=== PATIENT | male | born 1985 | race Caucasian/White ===

== ENCOUNTER 2023-07-28 14:51 | Outpatient (OUT) | payer OTHER, SELFPAY ==
--- NOTE | 2023-07-28 14:54 | US_ITS ---
[address] [address] Patient Name: BRIANNA GROSS MRN: [id number] date: 1985 Sex: M Assigned Patient Location: Current Patient Location: Accession/Order Number: [id number] Exam Date: 07/28/2023 15:00 Report Date: 07/29/2023 09:37 At the request of: SHAIKH DEANDRA Procedure: US scrotum US scrotum, 07/28/2023 3:00 PM EST INDICATION:Inflammatory disorder of the scrotum. COMPARISON: No prior scrotal ultrasound available for comparison at the time of this dictation. GRAYSCALE TECHNIQUE: Multi-planar real-time high-resolution ultrasound of the scrotum was performed. DOPPLER TECHNIQUE: Color and/or power Doppler combined with spectral Doppler analysis to evaluate blood flow to and from the testes was performed. FINDINGS: Right testicle: Normal size and echotexture 4.5 x 2.6 x 3.3 cm. Right epididymis: 0.7 x 0.4 x 0.5 cm simple cyst head of the epididymis. Vascularity is within normal limits. Right varicocele 2.5-3.1 mm in diameter. No subjectively significant increase in size with Valsalva technique. Left testicle: Normal size and echotexture 4.6 x 2.8 x 3.4 cm. Left epididymis: Vascularity is within normal limits. Trace simple left hydrocele. Normal color Doppler with arterial/venous spectral tracing to both testicles. US/US scrotum IMPRESSION: 1. No suspicious testicular mass or testicular torsion. 2. Simple right epididymal cyst. 3. Grade 1 right varicocele. No significant change in size with Valsalva. 4. Trace simple left hydrocele. Electronically authenticated by: LIBBY ROSS Date: 07/29/2023 09:37
== END 2023-07-28 14:52 | disposition home or self-care (01) ==
LOC: US 14:51
PROVIDERS: PCP Internal Medicine; Visit Provider Internal Medicine
DX: N49.2 Inflammatory disorders of scrotum (principal); N50.3 Cyst of epididymis
CPT/HCPCS: 76870

== ENCOUNTER 2023-08-21 08:45 | Emergency (ER) | payer OTHER, SELFPAY ==
[2023-08-21 08:47] VITALS: BP 134/95; PULSE 54; RESP 18; TEMP 37.1; O2SAT 99; BMI 29.5
--- NOTE | 2023-08-21 08:56 | ED_ITS ---
HPI - Allergic Reaction General Chief complaint: Allergic Reaction Stated complaint: HIVES/SWELLING Time Seen by Provider: 08/21/23 08:54 Source: patient Mode of arrival: walk-in History of Present Illness HPI narrative: 37-year-old male presents for an ALLERGIC reaction. It is only on his face and he had it two lesser degree a few weeks ago. It went away after taking some Benadryl. This time it started again two days ago and is worse than the 1st time. It's only on his face. It's pruritic and he took some Benadryl. No difficulty breathing or swallowing and he doesn't have rash elsewhere on his body. No new detergents. He has been hunting recently but he's not sure what he may have come into contact with. Related Data Previous Rx's Medication Instructions Recorded prednisone 10 mg tablet See Rx Instructions .Route 08/21/23 .COMPLEX #30 tabs Allergies Allergy/AdvReac Type Severity Reaction Status Date / Time No Known Drug Allergies Allergy Verified 08/21/23 08:50 Review of Systems ROS Narrative A ten point review of systems is negative except as noted above. Exam Narrative Exam Narrative: Nurses note and vital signs reviewed and patient is not hypoxic. General: The patient appears well and in no apparent distress. Skin: Warm, dry, no pallor noted. There is erythema on his face and some pe riorbital edema. No blisters present. Tongue not swollen. He swallowing his oral secretions well. there is no rash elsewhere on his body. Head: Normocephalic, atraumatic Eye: Normal conjunctiva, no drainage Ears, Nose, Mouth, and Throat: oral mucosa is moist. Nares patent. Cardiovascular: Regular Rate and Rhythm Respiratory: Patient is in no distress, no accessory muscle use GI: nontender Musculoskeletal: no joint swelling Neurological: A&O, normal speech Psychiatric: Cooperative Constitutional Vital Signs, click to edit/add: Last Vital Signs Temp 98.8 F 08/21/23 08:47 Pulse 54 L 08/21/23 08:47 Resp 18 08/21/23 08:47 BP 134/95 H 08/21/23 08:47 Pulse Ox 99 08/21/23 08:47 O2 Del Method Room Air 08/21/23 08:47 Course Vital Signs Vital signs: Vital Signs Temperature 98.8 F 08/21/23 08:47 Pulse Rate 54 L 08/21/23 08:47 Respiratory Rate 18 08/21/23 08:47 Blood Pressure 134/95 H 08/21/23 08:47 Pulse Oximetry 99 08/21/23 08:47 Oxygen Delivery Method Room Air 08/21/23 08:47 Temperature 98.8 F 08/21/23 08:47 Pulse Rate 54 L 08/21/23 08:47 Respiratory Rate 18 08/21/23 08:47 Blood Pressure 134/95 H 08/21/23 08:47 Pulse Oximetry 99 08/21/23 08:47 Oxygen Delivery Method Room Air 08/21/23 08:47 MDM - Allergic Reaction MDM Narrative Medical decision making narrative: my clinical impression is that he's had an ALLERGIC reaction to unknown substance. he was given IM Medrol and prescribed prednisone and he'll continue Benadryl. Treatment diagnosis and follow-up were discussed with the patient and his . Differential Diagnosis Differential diagnosis: Likely allergic reaction, angioedema, contact dermatitis, adverse reaction to drug and urticaria Discharge Plan Discharge Chief Complaint: Allergic Reaction Clinical Impression: Allergic reaction Patient Disposition: Home, Self-Care Time of Disposition Decision: 08:55 Condition: Good Mode of Transportation: Private Vehicle Prescriptions / Home Meds: New prednisone 10 mg tablet See Rx Instructions .ROUTE .COMPLEX Qty: 30 0RF Rx Instructions: 4 by mouth daily for three days then 3 by mouth daily for three days then 2 by mouth daily for three days then 1 by mouth daily for three days Instructions: General Allergic Reaction (ED) Stand Alone Forms: Portal Instructions Referrals: Shaikh Blas MD [Primary Care Provider] - 1 week
[2023-08-21] MEDS: METHYLPREDNISOLONE SOD SUCC PF 125 MG/2 ML VIAL IM (09:02)
== END 2023-08-21 09:06 | disposition home or self-care (01) ==
PROVIDERS: Emergency Provider Emergency Medicine; PCP Internal Medicine
DX: L50.0 Allergic urticaria (principal)
CPT/HCPCS: 96372; 99284; J2930

== ENCOUNTER 2023-11-10 08:22 | Outpatient (OUT) | payer OTHER, SELFPAY ==
--- OUTSIDE RECORDS SUMMARY | 2023-11-10 08:24 | XMS_ITS | CCD ---
Author Name Unknown Address [address] [place] [address] Organization [facility] Care Team Providers Care Bead Preparer Name Role Phone SIERRA CESARJuvenal Jiang Referring Unavailable JENNYFER PEREZ Primary Care Unavailable Jennyfer Perez Primary Care Provider DR SUJATA GREENE Attending Unavailable DR SUJATA GREENE Consulting Unavailable DR SUJATA GREENE Admitting Unavailable JESSIE BARTHOLOMEW Consulting Unavailable John Rouse III Primary Care Physician Lester DOTSON Attending Unavailable Lester DOTSON Attending Unavailable Medications Current Medications Medication Drug Class(es) Dates Sig (Normalized) Sig (Original) doxycycline hyclate 100 mg oral capsule (1 source) Tetracycline-clas s Drug Start: 10-30-2023 End: 12-29-2023 take 1 capsule by mouth twice daily doxycycline hyclate 100 mg Cap 100 mg = 1 cap(s), Oral, BID, Take with probiotics. Avoid calcium products., X 30 day(s), # 60 cap(s), Refills(s) 1, Pharmacy: [facility] [id number], 176, cm, 10/30/23 11:50:00 EST, Height/Length Dosing, 93, kg, 10/30/23 11:50:00 EST, Weight Dosing Start Date: 10/30/23 Stop Date: 12/29/23 Status: Ordered Problems Active Problems Problem Classification Problem Date Documented Da te Episodic/Chronic Inflammatory conditions of male genital organs (2 sources) Orchitis and epididymitis; Translations: [Epididymo-orchitis ] Onset: 10-30-2023 Episodic Other diseases of veins and lymphatics (2 sources) Varicocele; Translations: [Scrotal varices] Onset: 10-30-2023 Episodic Other female genital disorders (1 source) Disorder of reproductive system 10-30-2023 Episodic Other male genital disorders (1 source) Pain in testicle; Translations: [Right testicular pain] Onset: 10-30-2023 Episodic Other male genital disorders (2 sources) Cyst of epididymis; Translations: [Cyst of epididymis] Onset: 10-30-2023 Episodic Other male genital disorders (1 source) Hydrocele of testis; Translations: [Hydrocele, unspecified] Onset: 10-30-2023 Episodic Other male genital disorders (1 source) Pain of right testicle 10-30-2023 Episodic Past or Other Problems Problem Classification Problem Date Documented Da te Episodic/Chronic Administrative/social admission (1 source) Occupational exposure to unspecified risk factor; Translations: [OCCUPATIONAL EXPOS UNS RISK FACTOR] Onset: 12-20-2018 Episodic Cardiac dysrhythmias (4 sources) Bradycardia, unspecified; Translations: [BRADYCARDIA UNSPECIFIED] Onset: 12-16-2018 Episodic Other gastrointestinal disorders (1 source) Scrotal mass; Translations: [Scrotal mass] Onset: 08-19-2015 08-19-2015 Episodic Results Test Name Value Interpretation Reference Range Facility RAD - Ultrasound Reporton RAD - Ultrasound Report [id number] IFF Normal [facility] Patient Educationon 10-30-19 24 Patient Education Urology Epididymitis Epididymitis is inflammation or swelling of the epididymis. This is caused by an infection. The epididymis is a cord-like structure that is located along the top and back part of the testicle. It collects and stores sperm from the testicle. This condition can also cause pain and swelling of the testicle and scrotum. Symptoms usually start suddenly (acute epididymitis). Sometimes epididymitis starts gradually and lasts for a while (chronic epididymitis). Chronic epididymitis may be harder to treat. What are the causes? In men ages 20?40, this condition is usually caused by a bacterial infection or a sexually transmitted infection (STI), such as gonorrhea or chlamydia. In men 40 and older, this condition is usually caused by bacteria from a urinary blockage or from abnormalities in the urinary system. These can result from: ? Having a tube placed into the bladder (urinary catheter). ? Having an enlarged or inflamed prostate gland. ? Having recently had urinary tract surgery. ? Having a problem with a backward flow of urine (retrograde). In men who have a condition that weakens the body's defense system (immune system), such as human immunodeficiency virus (HIV), this condition can be caused by: ? Other bacteria, including tuberculosis and syphilis. ? Viruses. ? Fungi. Sometimes this condition occurs without infection. This may happen because of trauma or repetitive activities such as sports. What increases the risk? You are more likely to develop this condition if you have: ? Unprotected sex with more than one partner. ? Anal sex. ? Had recent surgery. ? A urinary catheter. ? Urinary problems. ? A suppressed immune system. What are the signs or symptoms? This condition usually begins suddenly with chills, fever, and pain behind the scrotum and in the testicle. Other symptoms include: ? Swelling of the scrotum, testicle, or both. ? Pain when ejaculating or urinating. ? Pain in the back or abdomen. ? Nausea. ? Itching and discharge from the penis. ? A frequent need to pass urine. ? Redness, increased warmth, and tenderness of the scrotum. How is this diagnosed? Your health care provider can diagnose this condition based on your symptoms and medical history. Your health care provider will also do a physical exam to check your scrotum and testicle for swelling, pain, and redness. You may also have other tests, including: ? Testing of discharge from the penis. ? Testing your urine for infections, such as STIs. ? Ultrasound to check for blood flow and inflammation. Your health care provider may test you for other STIs, including HIV. How is this treated? Treatment for this condition depends on the cause. If your condition is caused by a bacterial infection, oral antibiotic medicine may be prescribed. If the bacterial infection has spread to your blood, you may need to receive IV antibiotics. For both bacterial and nonbacterial epididymitis, you may be treated with: ? Rest. ? Elevation of the scrotum. ? Pain medicines. ? Anti-inflammatory medicines. Surgery may be needed if: ? You have pus buildup in the scrotum (abscess). ? You have epididymitis that has not responded to other treatments. Follow these instructions at home: Medicines ? Take ppgq-poe-uzquwvz and prescription medicines only as told by your health care provider. ? If you were prescribed an antibiotic medicine, take it as told by your health care provider. Do not stop taking the antibiotic even if your condition improves. Sexual activity ? If your epididymitis was caused by an STI, avoid sexual activity until your treatment is complete. ? Inform your sexual partner or partners if you test positive for an STI. They may need to be treated. Do not engage in sexual activity with your partner or partners until their treatment is completed. Managing pain and swelling ? If directed, raise (elevate) your scrotum and apply ice. To do this: ? Put ice in a plastic bag. ? Place a small towel or pillow between your legs. ? Rest your scrotum on the pillow or towel. ? Place another towel between your skin and the plastic bag. ? Leave the ice on for 20 minutes, 2?3 times a day. ? Remove the ice if your skin turns bright red. This is very important. If you cannot feel pain, heat, or cold, you have a greater risk of damage to the area. ? Keep your scrotum elevated and supported while resting. Ask your health care provider if you should wear a scrotal support, such as a jockstrap. Wear it as told by your health care provider. ? Try taking a sitz bath to help with discomfort. This is a warm water bath that is taken while you are sitting down. The water should come up to your hips and should cover your buttocks. Do this 3?4 times per day or as told by your health care provider. General instructions ? Drink enough fluid to keep your urine pale yell (more content not included)... Normal [facility] Urology Office/Clinic Noteon 10-30-2023 Urology Office/Clinic Note Chief Complaint New Pt *Testicular Pain HPI Staff New pt here to establish care. Pt has never been seen in our office before however did try to get established in 2018 per [employer]. Scrotal US 07/28/23 [facility]. No other recent/relevant urological records on [facility]. Rt testicular pain and swelling for the past few years. Did see Urology in [place]. DX'd w/epididymitis. No Tx. Sharp pain & heavy feeling. Feels like a lump/ball on Vas deferens. Denies urinary complications. History of Present Illness Tests reviewed: reviewed UA, Scrotal US I have reviewed the previous health record information and history for this patient from external providers. I have reviewed and verified the staff HPI to be accurate for this encounter. Review of Systems PHQ Score Initial Depression Screen Score: 0 SCORE ROS - Provider Constitutional: denies weight loss, denies hot flashes. Eyes: denies eye problems. Gastrointestinal: denies nausea, denies vomiting. Cardiovascular: denies chest pain or angina. Integumentary: no dryness Musculoskeletal: denies musculoskeletal symptoms. ENMT: denies otolaryngeal symptoms. Respiratory: no shortness of breath. Heme/Lymph: denies easy bleeding tendency, denies easy bruising tendency. Psychiatric: no confusion, no anxiety. Genitourinary: See HPI. Physical Exam Vitals & Measurements HR: 77(Peripheral) RR: 16 BP: 132/78 HT: 69 in HT: 176 cm WT: 93 kg WT: 204.6 lb BMI: 30.02 General Appearance: alert, no distress, well nourished, well developed male. Head: normocephalic . Eyes: normal orbit and globe. ENMT: normal examination of external ears. Chest: Lungs CTA, respirations non labored. Cardiovascular: regular rate and rhythm. Abdomen: soft, non distended, no tenderness, no mass or organomegaly, no hernia. Genitourinary: normal scrotum, normal testes, normal urethra, normal epididymis, normal vas deferens/spermatic cord. Flank Pain: none. Bladder: nonpalpable. Penis: normal shaft, normal glans. Lymph Nodes: unremarkable palpation of the cervical area. Skin: warm, dry, no bruising. Psychiatric: cooperative, affect appropriate for age, normal judgement, euthymic mood. Assessment/Plan Brianna is a 38 yo male new pt here for R testicular pain. 1. Epididymo-orchitis (N45.3: Epididymo-orchitis) Scrotal US 07/28/23 [facility] - 0.7 x 0.4 x 0.5 cm simple cyst at head of R epididymis. R varicocele 2.5-3.1cm in diameter without significant change in size with Valsava. Trace simple L hydrocele. Reports R testicular pain pain has been ongoing since vasectomy done 2009. Worsens with physical activity intermittently. States R testicle is larger than L and feels firm. Saw urology in [place], was told he had epididymitis but was not treated. PE: R inguinal hernia UA today negative for blood and infection. Voids every few hours. Denies pain with ejaculation. Discussed hernia is not likely cause of pain. Advised pt if it becomes bothersome, recommended pt to f/u with general surgery. Discussed he likely has epididymoorchitis which is contributing to pain. Will need a long course of abx. Pt inquired if pain was related to vasectomy, educated pt epididymoorchitis can occur as men age and is not likely an effect from vasectomy. Advised pt sxs will improve subtly over time and after abx treatment. -Take doxycycline 100mg bid x60 days. Take with probiotics. Rx sent to [facility]. -Wear scrotal support -F/u in 8-10 wks 2. Testicular pain, right (N50.811: Right testicular pain) See #1. 3. 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 4. Left hydrocele (N43.3: Hydrocele, unspecified) Scrotal US 07/28/23 [facility] - Trace simple L hydrocele. 5. Epididymal cyst (N50.3: Cyst of epididymis) Scrotal US 07/28/23 [facility] - 0.7 x 0.4 x 0.5 cm simple cyst at head of R epididymis. Follow-up With When Contact Information SOPHIE FAY, Lester Suarez, URL [facility] [address], [place] [address] [phone] Additional Instructions: 8-10 wk f/u Patient Education Epididymitis Orchitis Leydi Miller, personally scribed for Dr. Dotson on 10/30/2023 12:37:19. . Documentation recorded by the scribeLeydi, accurately reflects the services(s) I performed and decisions made by me. Authenticated by Dr. Dotson on 10/30/2023 12:41:38. Problem List/Past Medical History Ongoing Epididymal cyst Epididymo-orchitis Left hydrocele Right varicocele Testicular pain, right Historical No qualifying data Procedure/Surgical History Vasectomy (2010), Knee. Medications No active medications Allergies No Known Allergies Social History Alcohol - Low Risk, 03/24/2015 Current, Beer, 1-2 times per week, 03/24/2015 Substance Abuse - Denies Substance Abuse, 03/24/2015 Tobacco - Denies Tobacco Use, 03/24/2015 Ne (more content not included)... Normal [facility] Comment on above: Result Comment: Elec tronically Signed By: Lester DOTSON MD\.br\Date and Time Signed: 10/30/23 12:41 EST\.br\Electronically Co-Signed By: Leydi Simmons\.br\Date and Time Co-Signed: 10/30/23 12:37 EST COVID-19on 08-31-2020 Interpretation and review of laboratory results Abnormal [place], [place] SARS-CoV-2, Rapid DETECTED Abnormal Not Detected [place], [place] Comment on above: Rapid NAAT: The specimen is POSITIVE for SARS-Cov-2, the novel coronavirus associated with COVID-19. This test has been authorized by the FDA under an Emergency Use Authorization (EUA) for use by authorized laboratories. The ID NOW COVID-19 assay is designed to detect the virus that causes COVID-19 in patients with signs and symptoms of infection who are suspected of COVID-19. An individual without symptoms of COVID-19 and who is not shedding SARS-CoV-2 virus would expect to have a negative (not detected) result in this assay. Fact sheet for Healthcare Providers: https://www.fda.gov/media/228745/download Fact sheet for Patients: https://www.fda.gov/media/896636/download Methodology: Isothermal Nucleic Acid Amplification Results reported to the appropriate Health Department Source .NASOPHARYNGEAL SWAB [place], [place] Otheron 08-31-2020 SARS-CoV-2 [place], [place] [id number] 08-31-2020 SARS-CoV-2 Normal [facility] Comment on above: Performed By: #### C OVID #### [facility] [address] [place] [address] [place] [address] Prototype Carpenter: Marcio Romero MD SARS-CoV-2 [facility] Comment on above: Performed By: #### C OVID #### [facility] [address] [place] [address] Prototype Carpenter: Marcio Romero MD SARS-CoV-2,Rapid DETECTED Abnormal NOTDET [facility] Comment on above: Result Comment: Rapid NAAT: The specimen is POSITIVE for SARS-Cov-2, the novel coronavirus associated with COVID-19. This test has been authorized by the FDA under an Emergency Use Authorization (EUA) for use by authorized laboratories. The ID NOW COVID-19 assay is designed to detect the virus that causes COVID-19 in patients with signs and symptoms of infection who are suspected of COVID-19. An individual without symptoms of COVID-19 and who is not shedding SARS-CoV-2 virus would expect to have a negative (not detected) result in this assay. Fact sheet for Healthcare Providers: https://www.fda.gov/media/835272/download Fact sheet for Patients: https://www.fda.gov/media/950009/download Methodology: Isothermal Nucleic Acid Amplification Results reported to the appropriate Health Department Performed By: #### C OVID #### [facility] [address] [place] [address] Prototype Carpenter: Marcio Romero MD SARS-CoV-2 Source .NASOPHARYNGEAL SWAB [facility] Comment on above: Performed By: #### C OVID #### [facility] [address] [place] [address] Prototype Carpenter: Marcio Romero MD Vital Signs Date Time Vital Sign Value Performing Clinician Vikram tobin 10-30-2023 11:47-0500 Blood Pressure Location Lester DOTSON [facility] 10-30-2023 11:47-0500 Diastolic blood pressure 78 mm[Hg] Lester DOTSON [facility] 10-30-2023 11:47-0500 Heart rate 77 /min Lester DOTSON [facility] 10-30-2023 11:47-0500 Respiratory rate 16 /min Lester DOTSON [facility] 10-30-2023 11:47-0500 Systolic blood pressure 132 mm[Hg] Lester DOTSON [facility] Encounters Encounter Date Encounter Type Care Provider Facility Start: 01-15-2024 ambulatory Lester DOTSON Facili ty:[facility] Start: 10-30-2023 End: 10-31-2023 ambulatory Lester DOTSON Facility:[facility] Start: 10-30-2023 End: 10-30-2023 Patient encounter procedure Lester DOTSON [facility] Start: 08-31-2020 End: 09-01-2020 Patient encounter procedure MONSTER CESAR [facility] Start: 08-31-2020 End: 08-31-2020 Subsequent hospital visit by physician [facility] Covid Screening Schedule [facility] Covid Screening Comment on above: Arrived Start: 12-16-2018 End: 12-16-[address] SUJATA GREENE Facility:[facility] Procedures Date Procedure Procedure Detail Performing Clinician Start: 08-31-2020 COVID-19 MONSTER ARAMBULA Start: 08-31-2020 COVID-19 Monster E Eit ches Work Phone: Start: 09-18-2009 Vasectomy Lester SALDAÑA Knee region structur e (body structure) Lester DOTSON Plan of Treatment Date Care Activity Detail Author Start: 05-19-2020 Influenza vaccination Flu vaccine (# 1) [place], [place] Start: 2004 DTaP/Tdap/Td vaccine (1 - Tdap) DTaP/Tdap/Td vaccine (1 - Tdap) [place] Start: 2000 HIV screening HIV screen [facility] [place], [place] Start: 1986 Varicella vaccine (1 of 2 - 2-dose childhood series) Varicella vaccine (1 of 2 - 2-dose childhood series) [place] Immunizations Immunization Date Immunization Notes Care Provider Paulette cerrato 10-29-1997 measles, mumps and rubella virus vaccine Lester DOTSON [facility] Payers Date Payer Category Payer [employer] others) [id number] 2017 [employer] others) [id number] 1985 Unknown [id number] 1985 Unknown [id number] 1985 Unknown [id number] 1985 Unknown [id number] 1959 [employer] others) [id number] Social History Date Type Detail Facility Start: 08-19-2015 End: 10-30-2023 Tobacco smoking status NHIS Never smoker [facility] Start: 08-19-2015 Alcohol intake Current drinke r of alcohol (finding) [place], [place] Start: 08-19-2015 Alcohol Comment OCCASIONAL [facility] [place] Sex Assigned At Not on file [place], [place] Tobacco smoking status Never [facility] Sex Assigned At Male [facility] Functional Status Date Assessment Result Facility 10-30-2023 Functional Status N/A [facility] Hospital Discharge instructions 10-30-2023 Note Date & Type Note Facility 10-30-2023 Hospital Discharge instructions Patient Education 10/30/2023 12:32:47 Epididymitis Epididymitis Epididymitis is inflammation or swelling of the epididymis. This is caused by an infection. The epididymis is a cord-like structure that is located along the top and back part of the testicle. It collects and stores sperm from the testicle. This condition can also cause pain and swelling of the testicle and scrotum. Symptoms usually start suddenly (acute epididymitis). Sometimes epididymitis starts gradually and lasts for a while (chronic epididymitis). Chronic epididymitis may be harder to treat. What are the causes? In men ages 20 40, this condition is usually caused by a bacterial infection or a sexually transmitted infection (STI), such as gonorrhea or chlamydia. In men 40 and older, this condition is usually caused by bacteria from a urinary blockage or from abnormalities in the urinary system. These can result from: Having a tube placed into the bladder (urinary catheter). Having an enlarged or inflamed prostate gland. Having recently had urinary tract surgery. Having a problem with a backward flow of urine (retrograde). In men who have a condition that weakens the body's defense system (immune system), such as human immunodeficiency virus (HIV), this condition can be caused by: Other bacteria, including tuberculosis and syphilis. Viruses. Fungi. Sometimes this condition occurs without infection. This may happen because of trauma or repetitive activities such as sports. What increases the risk? You are more likely to develop this condition if you have: Unprotected sex with more than one partner. Anal sex. Had recent surgery. A urinary catheter. Urinary problems. A suppressed immune system. What are the signs or symptoms? This condition usually begins suddenly with chills, fever, and pain behind the scrotum and in the testicle. Other symptoms include: Swelling of the scrotum, testicle, or both. Pain when ejaculating or urinating. Pain in the back or abdomen. Nausea. Itching and discharge from the penis. A frequent need to pass urine. Redness, increased warmth, and tenderness of the scrotum. How is this diagnosed? Your health care provider can diagnose this condition based on your symptoms and medical history. Your health care provider will also do a physical exam to check your scrotum and testicle for swelling, pain, and redness. You may also have other tests, including: Testing of discharge from the penis. Testing your urine for infections, such as STIs. Ultrasound to check for blood flow and inflammation. Your health care provider may test you for other STIs, including HIV. How is this treated? Treatment for this condition depends on the cause. If your condition is caused by a bacterial infection, oral antibiotic medicine may be prescribed. If the bacterial infection has spread to your blood, you may need to receive IV antibiotics. For both bacterial and nonbacterial epididymitis, you may be treated with: Rest. Elevation of the scrotum. Pain medicines. Anti-inflammatory medicines. Surgery may be needed if: You have pus buildup in the scrotum (abscess). You have epididymitis that has not responded to other treatments. Follow these instructions at home: Medicines Take deqd-yai-vebgmkw and prescription medicines only as told by your health care provider. If you were prescribed an antibiotic medicine, take it as told by your health care provider. Do not stop taking the antibiotic even if your condition improves. Sexual activity If your epididymitis was caused by an STI, avoid sexual activity until your treatment is complete. Inform your sexual partner or partners if you test positive for an STI. They may need to be treated. Do not engage in sexual activity with your partner or partners until their treatment is completed. Managing pain and swelling If directed, raise (elevate) your scrotum and apply ice. To do this: ?Put ice in a plastic bag. ?Place a small towel or pillow between your legs. ?Rest your scrotum on the pillow or towel. ?Place another towel between your skin and the plastic bag. ?Leave the ice on for 20 minutes, 2 3 times a day. ?Remove the ice if your skin turns bright red. This is very important. If you cannot feel pain, heat, or cold, you have a greater risk of damage to the area. Keep your scrotum elevated and supported while resting. Ask your health care provider if you should wear a scrotal support, such as a jockstrap. Wear it as told by your health care provider. Try taking a sitz bath to help with discomfort. This is a warm water bath that is taken while you are sitting down. The water should come up to your hips and should cover your buttocks. Do this 3 4 times per day or as told by your health care provider. General instructions Drink enough fluid to keep your urine pale yellow. Return to your normal activities as told by your health care provider. Ask your health care provider what activities are safe for you. Keep all follow-up visits. This is important. Contact a health care provider if: You have a fever. Your pain medicine is not helping. Your pain is getting worse. Your symptoms do not improve within 3 days. Summary Epididymitis is inflammation or swelling of the epididymis. This is caused by an infection. This condition can also cause pain and swelling of the testicle and scrotum. Treatment for this condition depends on the cause. If your condition is caused by a bacterial infection, oral antibiotic medicine may be prescribed. Inform your sexual partner or partners if you test positive for an STI. They may need to be treated. Do not engage in sexual activity with your partner or partners until their treatment is completed. Contact a health care provider if your symptoms do not improve within 3 days. This information is not intended to replace advice given to you by your health care provider. Make sure you discuss any questions you have with your health care provider. Document Revised: 04/13/2022 Document Reviewed: 04/13/2022 [employer] Patient Education 2022 [employer]. 10/30/2023 12:32:45 Orchitis Orchitis Orchitis is inflammation of a testicle. Testicles are the male organs that produce sperm. The testicles are held in a fleshy sac (scrotum) located behind the penis. Orchitis usually affects only one testicle, but it can affect both. Orchitis is caused by infection. Many kinds of bacteria and viruses can cause this infection. The condition can develop suddenly. What are the causes? This condition may be caused by: Infection from viruses or bacteria. Other organisms, such as fungi or parasites. This is rare but can happen in men who have a weak body defense system (immune system), such as men who have HIV. Bacteria Bacterial orchitis often occurs along with an infection of the tube that collects and stores sperm (epididymis). In men who are not sexually active, this infection usually starts as a urinary tract infection and spreads to the testicle. In sexually active men, sexually transmitted infections (STIs) are the most common cause of bacterial orchitis. These can include: ?Gonorrhea. ?Chlamydia. Viruses Mumps is the most common cause of viral orchitis, though mumps is now rare in many areas because of vaccination. Other viruses that can cause orchitis include: ?The chickenpox virus (varicella-zoster virus). ?The virus that causes mononucleosis (Lyssa Jose virus). What increases the risk? The following factors may make you more likely to develop this condition: For viral orchitis: ?Not having been vaccinated against mumps. For bacterial orchitis: ?Having had frequent urinary tract infections. ?Engaging in high-risk sexual behaviors, such as having multiple sexual partners or having sex without using a condom. ?Having a sexual partner with an STI. ?Having had urinary tract surgery. ?Using a tube that is passed through the penis to drain urine (Farris catheter). ?Having an enlarged prostate gland. What are the signs or symptoms? The most common symptoms of orchitis are swelling and pain in the scrotum. Other signs and symptoms may include: Feeling generally sick (malaise). Fever and chills. Painful urination. Painful ejaculation. Headache. Fatigue. Nausea. Blood or discharge from the penis. Swollen lymph nodes in the groin area (inguinal nodes). How is this diagnosed? This condition may be diagnosed based on: Your symptoms. Your health care provider may suspect orchitis if you have a painful, swollen testicle along with other signs and symptoms of the condition. A physical exam. You may also have other tests, including: A blood test to check for signs of infection. A urine test to check for a urinary tract infection or STI. Using a swab to collect a fluid sample from the tip of the penis to test for STIs. Taking an image of the testicle using sound waves and a computer (testicular ultrasound). How is this treated? Treatment for this condition depends on the cause. For bacterial orchitis, your health care provider may prescribe antibiotic medicines. Bacterial infections usually clear up within a few days. For both viral infections and bacterial infections, treatment may include: Rest. Anti-inflammatory medicines. Pain medicines. Raising (elevating) the scrotum with a towel or pillow and applying ice. Follow these instructions at home: Managing pain and swelling Elevate your scrotum and apply ice as directed. To do this: Put ice in a plastic bag. Place a small towel or pillow between your legs. Rest your scrotum on the pillow or towel. Place another towel between your skin and the plastic bag. Leave the ice on for 20 minutes, 2 3 times a day. Remove the ice if your skin turns bright red. This is very important. If you cannot feel pain, heat, or cold, you have a greater risk of damage to the area. General instructions Rest as told by your health care provider. Take jplk-ine-bmotyfq and prescription medicines only as told by your health care provider. If you were prescribed an antibiotic medicine, take it as told by your health care provider. Do not stop taking the antibiotic even if you start to feel better. Do not have sex until your health care provider says it is okay to do so. Keep all follow-up visits. This is important. Contact a health care provider if: You have a fever. Pain and swelling have not gotten better after 3 days. Get help right away if: Your pain is getting worse. The swelling in your testicle gets worse. Summary Orchitis is inflammation of a testicle. It is caused by an infection from bacteria or a virus. The most common symptoms of orchitis are swelling and pain in the scrotum. Treatment for this condition depends on the cause. It may include medicines to fight the infection, reduce inflammation, and relieve the pain. Follow your health care provider's instructions about resting, icing, not having sex, and taking medicines. This information is not intended to replace advice given to you by your health care provider. Make sure you discuss any questions you have with your health care provider. Document Revised: 03/15/2022 Document Reviewed: 03/15/2022 [employer] Patient Education 2022 [employer]. Follow Up Care 07/26/2023 08:37:35 With:Lester DOTSON MD, URL Address: [facility] [address] , [place] [address]- [phone] When: Unknown Comments:8-10 wk f/u [facility] Evaluation + Plan note Note Date & Type Note Facility Evaluation + Plan note Future Appointments Appointment Date:01/15/2024 08:45:00 AM Scheduled Provider:Lester DOTSON MD Location:[facility] Appointment Type:URO Office Visit [facility] Hospital course Narrative Note Date & Type Note Facility Hospital course Narrative No data available for this section [facility] Progress note Note Date & Type Note Facility Progress note No data available for this section [facility] Summary Purpose Family History No Family History Records FoundNo Family History Records Found No data available for this section No Family History Records Found Advance Directives No Advanced Directives Records FoundDocuments on File Type Date Recorded Patient Oncology Patient Navigator Expl anation ACP-Advance Directive ACP-Power of Screener Operator Additional Source Comments (unrecognized sect ion and content) No Status Records FoundNo Status Records FoundNo Status Records Found INFORMATION SOURCE (unrecogn ized section and content) DATE CREATED AUTHOR 09/01/2020 [facility] DATE CREATED AUTHOR AUTHOR'S ORGANIZ ATION 10/01/2021 [facility] DATE CREATED AUTHOR AUTHOR'S ORGANIZ ATION 11/02/2023 [facility] Patient Care team informatio n (unrecognized section and content) Personnel Name: John Rouse III, DO Address: Address: [address] [place] [address] FOR RECORDS PERTAINING TO PATIENTS WHO ARE OR HAVE BEEN ENROLLED IN A CHEMICAL DEPENDENCY/SUBSTANCEABUSE PROGRAM, SOME INFORMATION MAY BE OMITTED. This clinical summary was aggregated from multiple sources. Caution should be exercised in using it in the provision of clinical care. This summary normalizes information from multiple sources, and as a consequence, information in this document may materially change the coding, format and clinical context of patient data. In addition, data may be omitted in some cases. CLINICAL DECISIONS SHOULD BE BASED ON THE PRIMARY CLINICAL RECORDS. [facility]. provides no warranty or guarantee of the accuracy or completeness of information in this document.
--- NOTE | 2023-11-10 08:29 | CT_ITS ---
[address] [address] Patient Name: BRIANNA GROSS MRN: [id number] date: 1985 Sex: M Assigned Patient Location: CT Current Patient Location: CT Accession/Order Number: [id number] Exam Date: 11/10/2023 09:28 Report Date: 11/10/2023 09:51 At the request of: ABHINAV CARVAJAL Procedure: CT abdomen pelvis wo con EXAMINATION: CT abdomen pelvis wo con HISTORY: Inguinal Hernia Right K40.90 , pain COMPARISON: No relevant comparison available. TECHNIQUE: Axial, Coronal, and Sagittal images were obtained without and/or with IV contrast as indicated by examination type. Dose reduction techniques were achieved by using automated exposure control and/or adjustment of mA and/or kV according to patient size and/or use of iterative reconstruction technique. FINDINGS: LUNG BASES: No visible pulmonary or pleural disease. LIVER: No enlargement, atrophy, suspicious density, or significant focal lesion. BILIARY: No dilatation or calcification. PANCREAS: No lesion, fluid collection, or abnormal duct dilatation. SPLEEN: Enlarged, 13.2 cm. ADRENALS: No mass or enlargement. KIDNEYS: No mass, obstruction, or calcification. BOWEL/MESENTERY: No visible mass, obstruction, or bowel wall thickening. Normal appendix. AORTA/VASCULAR: No aneurysm or dissection. RETROPERITONEUM: No mass or adenopathy. LYMPH NODES: No adenopathy. URINARY BLADDER: No visible focal wall thickening, lesion, or calculus. PELVIC ORGANS: No visible mass. Pelvic organs appropriate for patient age. ABDOMINAL WALL: No mass or hernia. BONES: No bony lesion or fracture. OTHER: Negative. CT/CT abdomen pelvis wo con IMPRESSION: 1. No right or left inguinal hernia visible on today's study, fluid collection, or inflammatory changes. 2. No abnormal or suspicious findings to account for patient's symptoms. 3. Slightly prominent spleen; nonspecific. Electronically authenticated by: MORGAN DUMONT Date: 11/10/2023 09:51
== END 2023-11-10 08:23 | disposition home or self-care (01) ==
LOC: CT 08:22
PROVIDERS: PCP Internal Medicine; Visit Provider Surgery
DX: K40.90 Unilateral inguinal hernia, without obstruction or gangrene, not specified as recurrent (principal)
CPT/HCPCS: 74176

== ENCOUNTER 2023-11-20 09:16 | Outpatient (OUT) | payer OTHER, SELFPAY ==
--- OUTSIDE RECORDS SUMMARY | 2023-11-20 09:20 | XMS_ITS | CCD ---
Author Name Unknown Address [address] [place] [address] Organization [facility] Care Team Providers Care Financial Market Dealer Name Role Phone SIERRA CESARN Apolinar Referring Unavailable JENNYFER PEREZ Primary Care Unavailable Jennyfer Perez Primary Care Provider DR SUJATA GREENE Attending Unavailable DR SUJATA GREENE Consulting Unavailable DR SUJATA GREENE Admitting Unavailable JESSIE BARTHOLOMEW Consulting Unavailable John Rouse III Primary Care Physician Lester DOTSON Attending Unavailable Lester DOTSON Attending Unavailable ANKUSH CARVAJAL Attending Unavailable Medications Current Medications Medication Drug Class(es) Dates Sig (Normalized) Sig (Original) doxycycline hyclate 100 mg oral capsule (1 source) Tetracycline-clas s Drug Start: 10-30-2023 End: 12-29-2023 take 1 capsule by mouth twice daily doxycycline hyclate 100 mg Cap 100 mg = 1 cap(s), Oral, BID, Take with probiotics. Avoid calcium products., X 30 day(s), # 60 cap(s), Refills(s) 1, Pharmacy: [facility] [id number], 176, cm, 10/30/23 11:50:00 EST, Height/Length Dosing, [...] - Ultrasound Reporton RAD - Ultrasound Report [id number] IFF Normal [facility] Patient Educationon 10-30-19 24 Patient Education Urology [...] these instructions at home: Medicines ? Take rshe-qpv-jyjrqqu and prescription medicines only as told by [...] pale yell (more content not included)... Normal [facility] Urology Office/Clinic Noteon 10-30-2023 Urology Office/Clinic Note Chief Complaint New Pt *Testicular Pain HPI Staff New pt here to establish care. Pt has never been seen in our office before however did try to get established in 2018 per [employer]. Scrotal US 07/28/23 TB. No other recent/relevant urological records on [facility]. Rt testicular pain and swelling for the past few years. Did see Urology in [place]. DX'd w/epididymitis. No Tx. Sharp pain & [...] L and feels firm. Saw urology in [place], was told he had epididymitis but was [...] [facility] [address], [place] [address] [phone] Additional Instructions: 8-10 wk f/u Patient Education Epididymitis Orchitis ILeydi, personally scribed for Dr. Dotson on 10/30/2023 12:37:19. . Documentation recorded by the scribeLeydi, accurately reflects the services(s) I performed and decisions made by me. Authenticated by Dr. Dotson on 10/30/2023 12:41:38. Problem List/Past Medical History Ongoing Epididymal cyst Epididymo-orchitis Left hydrocele Right varicocele Testicular pain, right Historical No qualifying data Procedure/Surgical History Vasectomy (2009), Knee. Medications No active medications Allergies No Known Allergies Social History Alcohol - Low Risk, 03/24/2015 Current, Beer, 1-2 times per week, 03/24/2015 Substance Abuse - Denies Substance Abuse, 03/24/2015 Tobacco - Denies Tobacco Use, 03/24/2015 Ne (more content not included)... Normal [facility] Comment on above: Result Comment: Elec tronically Signed By: Lester DOTSON MD\.br\Date and Time Signed: 10/30/23 12:41 EST\.br\Electronically Co-Signed By: Leydi Simmons\.br\Date and Time Co-Signed: 10/30/23 12:37 EST COVID-19on 08-31-2020 Interpretation and review of laboratory results Abnormal [place], [place] SARS-CoV-2, Rapid DETECTED Abnormal Not Detected [place], [place] Comment on above: Rapid NAAT: The [...] this assay. Fact sheet for Healthcare Providers: https://www.fda.gov/media/986642/download Fact sheet for Patients: https://www.fda.gov/media/441999/download Methodology: Isothermal Nucleic Acid Amplification Results reported to the appropriate Health Department Source .NASOPHARYNGEAL SWAB [place], [place] Otheron 08-31-2020 SARS-CoV-2 [place], [place] [id number] 08-31-2020 SARS-CoV-2 Normal [facility] Comment on above: Performed By: #### C OVID #### [facility] [address] [place] [address] Graduate Teacher Education: Marcio Romero MD SARS-CoV-2 [facility] Comment on above: Performed By: #### C OVID #### [facility] [address] [place] [address] Graduate Teacher Education: Marcio Romero MD SARS-CoV-2,Rapid DETECTED Abnormal NOTDET [facility] Comment on above: Result Comment: Rapid NAAT: [...] this assay. Fact sheet for Healthcare Providers: https://www.fda.gov/media/439563/download Fact sheet for Patients: https://www.fda.gov/media/465080/download Methodology: Isothermal Nucleic Acid Amplification Results reported to the appropriate Health Department Performed By: #### C OVID #### [facility] [address] [place] [address] [place] [address] Graduate Teacher Education: Marcio Romero MD SARS-CoV-2 Source .NASOPHARYNGEAL SWAB Normal [facility] Comment on above: Performed By: #### C OVID #### [facility] [address] [place] [address] Graduate Teacher Education: Marcio Romero MD Vital Signs Date Time Vital Sign Value Performing Clinician Vikram tobin 10-30-2023 11:47-0500 Blood Pressure Location Lester DOTSON [facility] 10-30-2023 11:47-0500 Diastolic blood pressure 78 mm[Hg] Lester DOTSON [facility] 10-30-2023 11:47-0500 Heart rate 77 /min Lester DOTSON [facility] 10-30-2023 11:47-0500 Respiratory rate 16 /min Lester DOTSON [facility] 10-30-2023 11:47-0500 Systolic blood pressure 132 mm[Hg] Lester DOTSON [facility] Encounters Encounter Date Encounter Type Care Provider Facility Start: 01-15-2024 ambulatory Lester DOTSON Facili ty:[facility] Start: 11-08-2023 End: 11-08-2023 ambulatory ANKUSH CARVAJAL Not Available Start: 10-30-2023 End: 10-31-2023 ambulatory Lester DOTSON Facility:[facility] Start: 10-30-2023 End: 10-30-2023 Patient encounter procedure Lester DOTSON [facility] Start: 08-31-2020 End: 09-01-2020 Patient encounter procedure MONSTER CESAR [facility] Start: 08-31-2020 End: 08-31-2020 Subsequent hospital visit by physician [facility] Comment on above: Arrived Start: 12-16-2018 End: 12-16-[address] SUJATA GREENE Facility:[facility] Procedures Date Procedure Procedure Detail Performing Clinician Start: 08-31-2020 COVID-19 MONSTER EITCH ES Start: 08-31-2020 COVID-19 Monster E Eit ches Work Phone: Start: 09-18-2009 Vasectomy Lester SALDAÑA Knee region structur e (body structure) Lester DOTSON Plan of Treatment Date Care Activity Detail Author Start: 05-19-2020 Influenza vaccination Flu vaccine (# 1) [place], [place] Start: 2004 DTaP/Tdap/Td vaccine (1 - Tdap) DTaP/Tdap/Td vaccine (1 - Tdap) [place], [place] Start: 2000 [facility] [place] [place] Start: 1986 Varicella vaccine (1 of 2 - 2-dose childhood series) Varicella vaccine (1 of 2 - 2-dose childhood series) [place] Immunizations Immunization Date Immunization Notes Care Provider Paulette cerrato 10-29-1997 measles, mumps and rubella virus vaccine Lester DOTSON [facility] Payers Date Payer Category Payer [employer] ( [employer] others) [id number] 2017 [employer] ( and others) [id number] 1985 Unknown [id number] 1985 Unknown [id number] 1985 Unknown [id number] 1985 Unknown [id number] 1985 Unknown [id number] 1959 [employer] ( and others) [id number] Social History Date Type Detail Facility Start: 08-19-2015 End: 10-30-2023 Tobacco smoking status NHIS Never smoker [facility] Start: 08-19-2015 Alcohol intake Current drinke r of alcohol (finding) [place], [place] Start: 08-19-2015 Alcohol Comment OCCASIONAL Kelly Gonzalez [place], [place] Sex Assigned At Not on file [place], [place] Tobacco smoking status Never [facility] Sex Assigned At Male [facility] Functional Status Date Assessment Result Facility 10-30-2023 Functional Status N/A [facility] Discharge instructions 10-30-2023 Note Date & [...] Follow these instructions at home: Medicines Take xycp-ysi-tvgxtjm and prescription medicines only as told by [...] provider. Document Revised: 04/13/2022 Document Reviewed: 04/13/2022 [employer] Patient Education 2022 [employer]. 10/30/2023 12:32:45 Orchitis Orchitis Orchitis is inflammation [...] told by your health care provider. Take ykmr-zwy-aaaditr and prescription medicines only as told by [...] provider. Document Revised: 03/15/2022 Document Reviewed: 03/15/2022 [employer] Patient Education 2022 [employer]. Follow Up Care 07/26/2023 08:37:35 With:SOPHIE FAY, Lester Suarez, URL Address: [facility] [address] , [place] [address]- [phone] When: Unknown Comments:8-10 wk f/u [facility] Evaluation + Plan note Note Date & Type Note Facility Evaluation + Plan note Future Appointments Appointment Date:01/15/2024 08:45:00 AM Scheduled Provider:Lester DOTSON MD Location:[facility] Appointment Type:URO Office Visit [facility] Hospital course Narrative Note Date & Type Note Facility Hospital course Narrative No data available for this section [facility] Progress note Note Date & Type Note Facility Progress note No data available for this section [facility] Summary Purpose Family History No Family History Records FoundNo Family History Records Found No data available for this section No Family History Records FoundNo Family History Records Found Advance Directives No Advanced Directives Records FoundDocuments on File Type Date Recorded Patient Dispatcher Motor Vehicle Expl anation ACP-Advance Directive ACP-Power of Management Trainer Additional Source Comments (unrecognized sect ion and content) No Status Records FoundNo Status Records FoundNo Status Records FoundNo Status Records Found INFORMATION SOURCE (unrecogn ized section and content) DATE CREATED AUTHOR [facility] DATE CREATED AUTHOR AUTHOR'S ORGANIZ ATION 10/01/2021 [facility] [place] [facility] DATE CREATED AUTHOR AUTHOR'S ORGANIZ ATION 11/02/2023 [facility] DATE CREATED AUTHOR AUTHOR'S ORGANIZ ATION 11/15/2023 [facility] [employer] Patient Care team informatio n (unrecognized section and content) Personnel Name: Nasim Anshu FAYE DOand Erick Address: Address: [address] [place] [address] FOR RECORDS PERTAINING TO PATIENTS WHO ARE [...] BE BASED ON THE PRIMARY CLINICAL RECORDS. [facility] [employer] [facility]. provides no warranty or guarantee of the accuracy or completeness of information in this document.
== END 2023-11-20 09:17 | disposition home or self-care (01) ==
LOC: PST 09:16
PROVIDERS: PCP Internal Medicine; Visit Provider Surgery
DX: Z01.818 Encounter for other preprocedural examination (principal); K40.20 Bilateral inguinal hernia, without obstruction or gangrene, not specified as recurrent

== ENCOUNTER 2023-11-24 06:26 | Day surgery (SDC) | payer OTHER, SELFPAY ==
[2023-11-20 09:39] VITALS: BP 117/72; PULSE 44; RESP 16; TEMP 36.5; O2SAT 98; BMI 31.6
--- NOTE | 2023-11-23 16:09 | W.PM.H&PUP ---
H&P Update Last H&P Last H&P: History & Physical 11/23/23 16:09 Cardiology History and Physical General Surgery History & Physical History & Physical Orthopedic History & Physical Attestation The H&P was reviewed. The Patient was examined and no change has occurred in the patient's condition since the last H&P was completed. Changes to Physical Exam are as follows:: Robotic inguinal hernia repair The patient was brought to the operating room and placed supine on the operating room table. Cardiopulmonary monitoring was initiated. General anesthesia was induced without any complication. A time-out was performed. Pre-operative antibiotics were given. EPC cuffs were on the lower extremities. Both arms were tucked. The abdomen was prepped and draped in the usual sterile fashion. The abdomen was entered approximately 12-14 cm distal to the xyophoid process and to the right of the midline. To do this a skin incision was made. A 0 degree laparoscope was then introduced using an optical access trocar. Pneumoperitoneum was then established through this trocar. Once pneumoperitoneum was created 2 additional 8 mm DA Katie ports were placed under direct visualization in the mid and left abdomen along the same line just superior to the umbilicus. The 5mm optiview port was then upsized to a 8mm robotic port under direct visualization. Prior to proceeding with the operation, an intraoperative TAP block was performed. ?Under visualization with the laparoscope, a needle was inserted percutaneously and, confirming that I was in the right plane, 30 mL of a mixture of Ropivacaine and Decadron were injected on both sides for a total of 60 ml. ?Good separation of the muscle planes was seen bilaterally indicating good placement of the anesthetic solution. The robot was then docked and a 30 degree robotic scope was placed into the abdomen. Both inguinal regions were inspected and the median umbilical ligament, medial umbilical ligaments, and lateral umbilical folds were identified. A indirect hernia was noted. There was no inguinal hernia on inspection. The peritoneum on the side was incised with scissor electrocautery along a line 2 cm above the superior edge of the hernia defect, extending from the medial umbilical ligament to the anterior superior iliac spine. The peritoneal flap was mobilized inferiorly using blunt dissection. Blunt dissection was down from the ASIS to the lateral edge of the internal ring. The inferior epigastric vessels were exposed and kept superior to the dissection planes at all times during the operation. Medial dissection was done until Jayden's ligament was exposed. The cord structures and hernia sac were identified. Cord structures were preserved during the dissection and reduction of hernia sac. The cord structures were dissected free from the hernia sac circumferentially. The hernia sac containing fat was reduced from the . Hemostasis was maintained. A Critical view of the amelia-pectineal orifice was achieved. Once dissection was completed, a 15 cm x 9 cm piece of [employer] Progrip mesh was rolled double scroll and placed within the peritoneum flap. The mesh was centered over the deep inguinal ring and unrolled to cover direct and indirect hernia spaces. It was noted to lay flat, in good position and without crimpage. The peritoneum was closed with running 2-0 V lock suture. The intra-abdominal cavity was grossly inspected there were no signs of bleeding or any other injury. The robot was undocked without complications. The midline fascia where the 8mm port was, was closed with an 3-0 Vicryl suture via suture pass technique under direct visualization. The pneumoperitoneum was evacuated through the remaining robotic ports and the ports removed. The port sites were closed with 4-0 Monocryl suture and then skin glue material was applied. The patient tolerated the procedure well and was transferred to the recovery room in satisfactory condition. All instruments, sharps and sponges were accounted for. Exam Constitutional: Vital Signs, click to edit/add: Last Vital Signs Temp 97.7 F 11/20/23 09:39 Pulse 44 L 11/20/23 09:39 Resp 16 11/20/23 09:39 BP 117/72 11/20/23 09:39 Pulse Ox 98 11/20/23 09:39 O2 Del Method Room Air 11/20/23 09:39
[2023-11-24] VITALS (11 sets, daily range): BP systolic 106–141; BP diastolic 50–78; PULSE 53–72; RESP 15–27; TEMP 36–36.2; O2SAT 90–100
--- OUTSIDE RECORDS SUMMARY | 2023-11-24 06:28 | XMS_ITS | CCD ---
Author Name Unknown Address [address] [place] [address] Organization [facility] Care Team Providers Care Regulatory Lead Name Role Phone SIERRA CESARN Apolinar Referring [...] day(s), # 60 cap(s), Refills(s) 1, Pharmacy: [facility] [id number], 176, cm, 10/30/23 11:50:00 EST, Height/Length Dosing, [...] - Ultrasound Reporton RAD - Ultrasound Report [id number] IFF Normal [facility] Patient Educationon 10-30-19 24 Patient Education [...] these instructions at home: Medicines ? Take xtiz-nkn-ckmexvy and prescription medicines only as told by [...] pale yell (more content not included)... Normal [facility] Urology Office/Clinic Noteon 10-30-2023 Urology Office/Clinic Note Chief Complaint New Pt *Testicular Pain HPI Staff New pt here to establish care. Pt has never been seen in our office before however did try to get established in 2018 per [facility]. Scrotal US 07/28/23 TB. No other recent/relevant urological records on [facility]. Rt testicular pain and swelling for the past few years. Did see Urology in [place]. DX'd w/epididymitis. No Tx. Sharp pain & [...] L and feels firm. Saw urology in [place], was told he had epididymitis but was [...] [facility] [address], [place] [address] [phone] Additional Instructions: 8-10 wk f/u Patient Education [...] 03/24/2015 Ne (more content not included)... Normal [facility] Comment on above: Result Comment: Elec tronically Signed By: Lester DOTSON MD\.br\Date and Time Signed: 10/30/23 12:41 EST\.br\Electronically Co-Signed By: Leydi Simmons\.br\Date and Time Co-Signed: 10/30/23 12:37 EST COVID-19on 08-31-2020 Interpretation and review of laboratory results Abnormal [place], [place] SARS-CoV-2, Rapid DETECTED Abnormal Not Detected [place], [place] Comment on above: Rapid NAAT: The [...] this assay. Fact sheet for Healthcare Providers: https://www.fda.gov/media/684641/download Fact sheet for Patients: https://www.fda.gov/media/792456/download Methodology: Isothermal Nucleic Acid Amplification Results reported to the appropriate Health Department Source .NASOPHARYNGEAL SWAB [place] Otheron 08-31-2020 SARS-CoV-2 [place], [place] [id number] 08-31-2020 SARS-CoV-2 Normal [facility] Comment on above: Performed By: #### C OVID #### [facility] [address] [place] [address] Timing Adjuster: Marcio Romero MD SARS-CoV-2 [facility] Comment on above: Performed By: #### C OVID #### [facility] [address] [place] [address] Timing Adjuster: Marcio Romero MD SARS-CoV-2,Rapid DETECTED Abnormal NOTDET [facility] Comment on above: Result Comment: Rapid NAAT: [...] this assay. Fact sheet for Healthcare Providers: https://www.fda.gov/media/245292/download Fact sheet for Patients: https://www.fda.gov/media/636349/download Methodology: Isothermal Nucleic Acid Amplification Results reported to the appropriate Health Department Performed By: #### C OVID #### [facility] [address] [place] [address] [place] [address] Timing Adjuster: Marcio Romero MD SARS-CoV-2 Source .NASOPHARYNGEAL SWAB Normal [facility] Comment on above: Performed By: #### C OVID #### [facility] [address] [place] [address] Timing Adjuster: Marcio Romero MD Vital Signs Date Time Vital Sign Value Performing Clinician Vikram tobin 10-30-2023 11:47-0500 Blood Pressure Location Lester DOTSON [facility] 10-30-2023 11:47-0500 Diastolic blood pressure 78 mm[Hg] Lestre DOTSON [facility] 10-30-2023 11:47-0500 Heart rate 77 /min Lester DOTSON [facility] 10-30-2023 11:47-0500 Respiratory rate 16 /min Lester DOTSON [facility] 10-30-2023 11:47-0500 Systolic blood pressure 132 mm[Hg] Lester DOTSON [facility] Encounters Encounter Date Encounter Type Care Provider Facility Start: 01-15-2024 ambulatory Lester DOTSON Facili ty:[facility] Start: 11-08-2023 End: 11-08-2023 ambulatory ANKUSH CARVAJAL Not Available Start: 10-30-2023 End: 10-31-2023 ambulatory Lester DOTSON Facility:[facility] Start: 10-30-2023 End: 10-30-2023 Patient encounter procedure Lester DOTSON [facility] Start: 08-31-2020 End: 09-01-2020 Patient encounter procedure MONSTER CESAR [facility] Start: 08-31-2020 End: 08-31-2020 Subsequent hospital [facility] Comment on above: [...] 05-19-2020 Influenza vaccination Flu vaccine (# 1) [place], [place] Start: 2004 DTaP/Tdap/Td vaccine (1 - Tdap) DTaP/Tdap/Td vaccine (1 - Tdap) [place], [place] Start: 2000 HIV [facility] [place] [place] Start: 1986 Varicella vaccine (1 of 2 - 2-dose childhood series) Varicella vaccine (1 of 2 - 2-dose childhood series) [place] Immunizations Immunization Date Immunization Notes Care Provider Paulette cerrato 10-29-1997 measles, mumps and rubella virus vaccine Lester DOTSON [facility] Payers Date Payer Category Payer [employer] others) [id number] 2017 [employer] ( [employer] others) [id number] 1985 Unknown [id number] 1985 Unknown [id number] 1985 Unknown [id number] 1985 Unknown [id number] 1985 Unknown [id number] 1959 [employer] ( and others) [id number] Social History Date Type Detail Facility Start: 08-19-2015 End: 10-30-2023 Tobacco smoking status NHIS Never smoker [facility] Start: 08-19-2015 Alcohol intake Current drinke r of alcohol (finding) [place], [place] Start: 08-19-2015 Alcohol Comment OCCASIONAL Kelly Gonzalez [place], [place] Sex Assigned At Not on file [place], [place] Tobacco smoking status Never [facility] Sex Assigned At Male [facility] Functional Status Date Assessment Result Facility 10-30-2023 Functional Status N/A [facility] Discharge instructions 10-30-2023 Note Date & [...] Follow these instructions at home: Medicines Take veni-vxt-ylspdke and prescription medicines only as told by [...] provider. Document Revised: 04/13/2022 Document Reviewed: 04/13/2022 [employer] Patient Education 2022 [employer]. 10/30/2023 12:32:45 Orchitis Orchitis Orchitis is inflammation [...] told by your health care provider. Take gwan-dou-chzucyq and prescription medicines only as told by [...] provider. Document Revised: 03/15/2022 Document Reviewed: 03/15/2022 [employer] Patient Education 2022 [employer]. Follow Up Care 07/26/2023 08:37:35 With:SOPHIE FAY, Lester Suarez, URL Address: [facility] [address] , [place] [address]- [phone] When: Unknown Comments:8-10 wk f/u [facility] Evaluation + Plan note Note Date & Type Note Facility Evaluation + Plan note Future Appointments Appointment Date:01/15/2024 08:45:00 AM Scheduled Provider:Lester DOTSON MD Location:[facility] Appointment Type:URO Office Visit [facility] Hospital course Narrative Note Date & Type Note Facility Hospital course Narrative No data available for this section [facility] Progress note Note Date & Type Note Facility Progress note No data available for this section [facility] Summary Purpose Family History No Family History Records FoundNo Family History Records Found No data available for this section No Family History Records FoundNo Family History Records Found Advance Directives No Advanced Directives Records FoundDocuments on File Type Date Recorded Patient Statistics Professor Expl anation ACP-Advance Directive ACP-Power of Talent Director Additional Source Comments (unrecognized sect ion and content) No Status Records FoundNo Status Records FoundNo Status Records FoundNo Status Records Found INFORMATION SOURCE (unrecogn ized section and content) DATE CREATED AUTHOR [facility]01/[address] [facility] DATE CREATED AUTHOR AUTHOR'S ORGANIZ ATION 10/01/2021 [facility] [place] [facility] DATE CREATED AUTHOR AUTHOR'S ORGANIZ ATION 11/02/2023 [facility] DATE CREATED AUTHOR AUTHOR'S ORGANIZ ATION 11/15/2023 [facility] EPIC Patient Care team informatio n (unrecognized section and content) Personnel Name: Nasim Anshu FAYE DOand Erick Address: Address: [address] [place] [address] FOR RECORDS PERTAINING TO PATIENTS WHO ARE [...] BE BASED ON THE PRIMARY CLINICAL RECORDS. [facility] [employer] [facility]. provides no warranty or guarantee of the accuracy or completeness of information in this document.
[2023-11-24] MEDS: LACTATED RINGER'S SOLUTION 1,000 ML 50 ML IV (07:15)
--- NOTE | 2023-11-24 07:30 | W.PM.PROCNOT ---
Date of procedure: 11/24/23 Pre-op diagnosis: right inguinal hernia repair Post-op diagnosis: same as pre-op Procedure: The patient was brought to the operating room and placed supine on the operating room table. Cardiopulmonary monitoring was initiated. General anesthesia was induced without any complication. A time-out was performed. Pre-operative antibiotics were given. EPC cuffs were on the lower extremities. Both arms were tucked. The abdomen was prepped and draped in the usual sterile fashion. The abdomen was entered approximately 12-14 cm distal to the xyophoid process and to the right of the midline. To do this a skin incision was made. A 5mm 0 degree laparoscope was then introduced using an optical access trocar. Pneumoperitoneum was then established through this trocar. Once pneumoperitoneum was created 2 additional 8 mm DA Katie ports were placed under direct visualization in the mid and left abdomen along the same line just superior to the umbilicus. The 5mm optiview port was then upsized to a 8mm robotic port under direct visualization. Prior to proceeding with the operation, an intraoperative TAP block was performed.? Under visualization with the laparoscope, a needle was inserted percutaneously and, confirming that I was in the right plane, 30 mL of a mixture of Ropivacaine and Decadron were injected on both sides for a total of 60 ml.? Good separation of the muscle planes was seen bilaterally indicating good placement of the anesthetic solution. The robot was then docked and a 30 degree robotic scope was placed into the abdomen. Both inguinal regions were inspected and the median umbilical ligament, medial umbilical ligaments, and lateral umbilical folds were identified. A right indirect hernia was noted. There was no left inguinal hernia on inspection. The peritoneum on the right side was incised with scissor electrocautery along a line 2 cm above the superior edge of the hernia defect, extending from the medial umbilical ligament to the anterior superior iliac spine. The peritoneal flap was mobilized inferiorly using blunt dissection. Blunt dissection was down from the ASIS to the lateral edge of the internal ring. The inferior epigastric vessels were exposed and kept superior to the dissection planes at all times during the operation. Medial dissection was done until Coopers ligament was exposed. The cord structures and hernia sac were identified. Cord structures were preserved during the dissection and reduction of hernia sac. The cord structures were dissected free from the hernia sac circumferentially. The hernia sac containing fat was reduced from the cord and structures. Hemostasis was maintained. A Critical view of the amelia-pectineal orifice was achieved. Once dissection was completed, a 15 cm x 10 cm piece of [employer] Progrip mesh was rolled double scroll and placed within the peritoneum flap. The mesh was centered over the deep inguinal ring and unrolled to cover direct and indirect hernia spaces. It was noted to lay flat, in good position and without crimpage. The peritoneum was closed with running 2-0 V lock suture. The intra-abdominal cavity was grossly inspected there were no signs of bleeding or any other injury. The robot was undocked without complications. The midline 8mm port fascia was closed with an 0 Vicryl suture via suture pass technique under direct visualization. The pneumoperitoneum was evacuated through the remaining robotic ports and the ports removed. The port sites were closed with 4-0 Monocryl suture and then skin glue material was applied. The patient tolerated the procedure well and was transferred to the recovery room in satisfactory condition. All instruments, sharps and sponges were accounted for. Anesthesia: GETA Surgeon: Randall Freeman Estimated blood loss (mL): 5 Pathology: none sent Condition: stable Disposition: PACU
[2023-11-24] MEDS: CEFAZOLIN SODIUM/DEXTROSE,ISO 2 GM/50 ML PIGGYBACK IV (07:32)
[2023-11-24] MEDS: BUPIVACAINE HCL 0.25% PF 25 MG/10 ML VIAL 20 ML INJ (08:14)
[2023-11-24] MEDS: BUPIVACAINE LIPOSOME/PF 266 MG/13.3 ML VIAL INJ (08:14)
[2023-11-24] MEDS: 0.9 % SODIUM CHLORIDE 10 ML VIAL 20 ML INJ (08:14)
[2023-11-24] MEDS: LACTATED RINGER'S SOLUTION 1,000 ML 1000 ML IV (10:10)
[2023-11-24] MEDS: PROMETHAZINE HCL 25 MG/ML VIAL 12.5 MG IV (11:09)
[2023-11-24] MEDS: OXYCODONE HCL/ACETAMINOPHEN 5MG/325MG 1 TAB PO (12:05)
== END 2023-11-24 12:10 | disposition home or self-care (01) ==
LOC: SURGOUT 06:26
PROVIDERS: PCP Internal Medicine; Visit Provider Surgery
PROC: (CPT 840; principal; 2023-11-24 07:30)
DX: K40.90 Unilateral inguinal hernia, without obstruction or gangrene, not specified as recurrent (principal); F17.220 Nicotine dependence, chewing tobacco, uncomplicated
CPT/HCPCS: 49650; C1781; J1094; J1170; J2704

== ENCOUNTER 2023-12-19 16:52 | Outpatient (OUT) | payer OTHER, SELFPAY ==
--- NOTE | 2023-12-19 16:56 | XR_ITS ---
The [address] [address] Patient Name: BRIANNA GROSS MRN: [id number] date: 1985 Sex: M Assigned Patient Location: [facility] Current Patient Location: [facility] Accession/Order Number: [id number] Exam Date: 12/19/2023 17:00 Report Date: 12/19/2023 17:25 At the request of: SMITH ARMENTA Procedure: XR chest 2V EXAM: XR chest 2V HISTORY: Acute cough, R05.1 COMPARISON: None. TECHNIQUE: PA and lateral views of the chest performed. FINDINGS: The trachea is midline. The heart size is normal. The cardiomediastinal silhouette and hilar shadows are normal. There is mild patchy airspace disease within the left lower chest. There is no pleural effusion or pulmonary vascular congestion. There is no pneumothorax. There is no osseous abnormality. XR/XR chest 2V IMPRESSION: Mild patchy airspace disease within the left lower chest which in the right clinical setting is consistent with a pneumonia. Electronically authenticated by: JESUSITA BROWNLEE Date: 12/19/2023 17:25
== END 2023-12-19 16:53 | disposition home or self-care (01) ==
PROVIDERS: PCP Family Medicine; Visit Provider Family Medicine
DX: R05.1 Acute cough (principal); J18.9 Pneumonia, unspecified organism
CPT/HCPCS: 71046

== ENCOUNTER 2023-12-21 16:24 | Outpatient (REF) | payer OTHER, SELFPAY | END 2023-12-21 16:25 | disposition home or self-care (01) | LOC: LAB 16:24 | PROVIDERS: PCP Family Medicine; Visit Provider Family Medicine | DX: R05.1 Acute cough (principal) | CPT/HCPCS: 87070; 87205 ==

== ENCOUNTER 2023-12-27 13:48 | Outpatient (OUT) | payer OTHER, SELFPAY ==
--- NOTE | 2023-12-27 13:54 | CT_ITS ---
The [address] [address] Patient Name: BRIANNA GROSS MRN: [id number] date: 1985 Sex: M Assigned Patient Location: RAD Current Patient Location: RAD Accession/Order Number: [id number] Exam Date: 12/27/2023 14:20 Report Date: 12/27/2023 16:01 At the request of: CASSIE MAURICIO Procedure: CT chest wo con EXAMINATION: CT chest wo con HISTORY: Pneumonitis Due to Inhalation J69.0 COMPARISON: 12/19/2023 chest x-ray TECHNIQUE: Multi-planar CT images were created with IV contrast. Axial, Coronal, and Sagittal images. Dose reduction techniques were achieved by using automated exposure control and/or adjustment of mA and/or kV according to patient size and/or use of iterative reconstruction technique. FINDINGS: LUNGS: Mild to moderate lower lobe peribronchial thickening. Patchy micronodular appearance in the lingula and bilateral lung bases with a focal 1.9 cm opacity posterior basilar segment of the left lower lobe, axial image 82 PLEURA: No mass, effusion, or pneumothorax. VASCULATURE: No abnormality. JUANITO: No mass or adenopathy. MEDIASTINUM: No mass or adenopathy. CARDIAC: No enlargement, pericardial thickening, or significant calcification. AORTA: No aneurysm or dissection. CHEST WALL: No mass or axillary adenopathy. BONES: No bone lesion or fracture. LIMITED ABDOMEN: No suspicious findings. Limited images of the upper abdomen. OTHER: Negative. CT/CT chest wo con IMPRESSION: Pericardial thickening and patchy peripheral infiltrates. Consider an atypical pneumonia or pneumonitis Electronically authenticated by: ELIA JUNG Date: 12/27/2023 16:01
== END 2023-12-27 13:49 | disposition home or self-care (01) ==
LOC: RAD 13:49
PROVIDERS: PCP Family Medicine; Visit Provider Internal Medicine
DX: J69.0 Pneumonitis due to inhalation of food and vomit (principal)
CPT/HCPCS: 71250

== ENCOUNTER 2024-01-05 15:58 | Outpatient (OUT) | payer OTHER, SELFPAY ==
--- NOTE | 2024-01-05 16:01 | US_ITS ---
The [address] [address] Patient Name: BRIANNA GROSS MRN: [id number] date: 1985 Sex: M Assigned Patient Location: Current Patient Location: Accession/Order Number: [id number] Exam Date: 01/05/2024 16:40 Report Date: 01/07/2024 06:02 At the request of: MIAH RILEY Procedure: US scrotum EXAMINATION: US scrotum HISTORY: Right Testicle Pain COMPARISON: Ultrasound scrotum 07/28/2023 TECHNIQUE: High-resolution sonographic imaging of the scrotum and contents was performed. FINDINGS: RIGHT: TESTICLE: Homogeneous echotexture. No visible mass. Color Doppler flow is present. Spectral Doppler demonstrates normal arterial waveform and flow, 5/2 cm/s (PSV/EDV), and normal venous wave flow averaging 1 cm/s. EPIDIDYMIS: Normal size and echogenicity. Incidental 5 mm cyst within head of epididymis. OTHER: Small varicocele and tiny hydrocele. LEFT: TESTICLE: Homogeneous echotexture. No visible mass. Color Doppler flow is present. Spectral Doppler demonstrates arterial waveform and flow, 4/2 cm/s (PSV/EDV), and normal venous flow averaging 1 cm/s. EPIDIDYMIS: Normal size and echogenicity. OTHER: Small varicocele. US/US scrotum IMPRESSION: 1. Bilateral small varicoceles. 2. Small 5 mm cyst within head of left epididymis of questionable clinical significance. 3. No mass or evidence of epididymitis/orchitis. Electronically authenticated by: MORGAN DUMONT Date: 01/07/2024 06:02
--- OUTSIDE RECORDS SUMMARY | 2024-01-05 16:04 | XMS_ITS | CCD ---
Author Organization [facility] Care Team Providers Care Back Roller Name Role Phone SIERRA CESARJuvenal Jiang Referring Unavailable JENNYFER PEREZ Primary Care Unavailable Jennyfer Perez Primary Care Provider [phone] DR SUJATA GREENE Attending Unavailable DR SUJATA GREENE Consulting Unavailable DR SUJATA GREENE Admitting Unavailable JESSIE BARTHOLOMEW Consulting Unavailable John Rouse III Primary Care Physician ABHINAV CARVAJAL Attending Unavailable ABHINAV CARVAJAL Attending Unavailable SMITH ARMENTA Attending Unavailable Lester DOTSON Attending Unavailable Lester DOTSON Attending [...] day(s), # 60 cap(s), Refills(s) 1, Pharmacy: [facility] [id number], 176, cm, 10/30/23 11:50:00 EST, Height/Length Dosing, [...] - Ultrasound Reporton RAD - Ultrasound Report [id number] IFF Normal [facility] Patient Educationon 10-30-19 24 Patient Education Urology [...] these instructions at home: Medicines ? Take ucbd-mct-ribghjz and prescription medicines only as told by [...] yell (more content not included)... Normal [facility] Urology Office/Clinic Noteon 10-30-2023 Urology Office/Clinic Note Chief Complaint New Pt *Testicular Pain HPI Staff New pt here to establish care. Pt has never been seen in our office before however did try to get established in 2018 per [employer]. Scrotal US 07/28/23 [facility]. [facility]. Rt testicular pain and swelling for the past few years. Did see Urology in [place]. DX'd w/epididymitis. No Tx. Sharp pain & [...] L and feels firm. Saw urology in [place], was told he had epididymitis but was [...] URL [facility] [address], [place] [address] [phone] Additional Instructions: 8-10 wk f/u Patient Education [...] 03/24/2015 Ne (more content not included)... Normal [facility] Comment on above: Result Comment: Elec tronically Signed By: Lester DOTSON MD\.br\Date and Time Signed: 10/30/23 12:41 EST\.br\Electronically Co-Signed By: Leydi Simmons\.br\Date and Time Co-Signed: 10/30/23 12:37 EST COVID-19on 08-31-2020 Interpretation and review of laboratory results Abnormal [place] SARS-CoV-2, Rapid DETECTED Abnormal Not Detected [place] Comment on above: Rapid NAAT: The [...] this assay. Fact sheet for Healthcare Providers: https://www.fda.gov/media/654052/download Fact sheet for Patients: https://www.fda.gov/media/417785/download Methodology: Isothermal Nucleic Acid Amplification Results reported to the appropriate Health Department Source .NASOPHARYNGEAL SWAB [place], [place] Otheron 08-31-2020 SARS-CoV-2 [place] [id number] 08-31-2020 SARS-CoV-2 Normal [facility] Comment on above: Performed By: #### C OVID #### [facility] [address] [place] [address] [place] [address] Service Learning Coordinator: Marcio Romero MD SARS-CoV-2 Normal [facility] Comment on above: Performed By: #### C OVID #### [facility] [address] [place] [address] Service Learning Coordinator: Marcio Romero MD SARS-CoV-2,Rapid DETECTED Abnormal NOTDET [facility] Comment on above: Result Comment: Rapid NAAT: [...] this assay. Fact sheet for Healthcare Providers: https://www.fda.gov/media/784878/download Fact sheet for Patients: https://www.fda.gov/media/879799/download Methodology: Isothermal Nucleic Acid Amplification Results reported to the appropriate Health Department Performed By: #### C OVID #### [facility] [address] [place] [address] Service Learning Coordinator: Marcio Romero MD SARS-CoV-2 Source .NASOPHARYNGEAL SWAB Normal [facility] Comment on above: Performed By: #### C OVID #### [facility] [address] [place] [address] Service Learning Coordinator: Marcio Romero MD Vital Signs Date Time Vital Sign Value Performing Clinician Brittai crista 10-30-2023 11:47-0500 Blood Pressure Location Lester DOTSON [facility] 10-30-2023 11:47-0500 Diastolic blood pressure 78 mm[Hg] Lester DOTSON [facility] 10-30-2023 11:47-0500 Heart rate 77 /min Lester DOTSON [facility] 10-30-2023 11:47-0500 Respiratory rate 16 /min Lester DOTSON [facility] 10-30-2023 11:47-0500 Systolic blood pressure 132 mm[Hg] Lesterclare DOTSON [facility] Encounters Encounter Date Encounter Type Care Provider Facility Start: 01-15-2024 ambulatory Lester DOTSON Facili ty:[facility] Start: 12-21-2023 ambulatory Lester DOTSON Facility :[facility] Start: 12-19-2023 End: 12-19-2023 ambulatory SMITH ARMENTA Not Available Start: 12-06-2023 End: 12-07-2023 ambulatory ABHINAV CARVAJAL Not Available Start: 11-08-2023 End: 11-08-2023 ambulatory ABHINAV CARVAJAL Not Available Start: 10-30-2023 End: 10-31-2023 ambulatory Lester DOTSON Facility:[facility] Start: 10-30-2023 End: 10-30-2023 Patient encounter procedure Lester DOTSON [facility] Start: 08-31-2020 End: 09-01-2020 Patient encounter procedure MONSTER CESAR [facility] Start: 08-31-2020 End: 08-31-2020 Subsequent hospital visit by physician [facility] Covid Screening Schedule [facility] Covid Screening Comment on above: Arrived Start: [...] 05-19-2020 Influenza vaccination Flu vaccine (# 1) [place] Start: 2004 DTaP/Tdap/Td vaccine (1 - Tdap) DTaP/Tdap/Td vaccine (1 - Tdap) [place] Start: 2000 HIV screening HIV screen [place], [place] Start: 1986 Varicella vaccine (1 of 2 - 2-dose childhood series) Varicella vaccine (1 of 2 - 2-dose childhood series) [place] Immunizations Immunization Date Immunization Notes Care Provider Paulette cerrato 10-29-1997 measles, mumps and rubella virus vaccine Lester DOTSON [facility] Payers Date Payer Category Payer [employer]) [id number] 2017 [employer] [id number] 1985 Unknown [id number] 1985 Unknown [id number] 1985 Unknown [id number] 1985 Unknown [id number] 1985 Unknown [id number] 1985 Unknown [id number] 1985 Unknown [id number] 1985 Unknown [id number] 1959 [employer] ( [employer] others) [id number] Social History Date Type Detail Facility Start: 08-19-2015 End: 10-30-2023 Tobacco smoking status NHIS Never smoker [facility] Start: 08-19-2015 Alcohol intake Current drinke r of alcohol (finding) [place] Start: 08-19-2015 Alcohol Comment OCCASIONAL Kelly [place], [place] Sex Assigned At Not on file [place] Tobacco smoking status Never [facility] Sex Assigned At Male [facility] Functional Status Date Assessment Result Facility 10-30-2023 Functional Status N/A [facility] Hospital Discharge instructions 10-30-2023 Note Date [...] Follow these instructions at home: Medicines Take qivv-skb-ckrtvnq and prescription medicines only as told by [...] provider. Document Revised: 04/13/2022 Document Reviewed: 04/13/2022 [employer] Patient Education 2022 [employer] 10/30/2023 12:32:45 Orchitis Orchitis Orchitis is inflammation [...] told by your health care provider. Take tfmw-olp-wcvjixv and prescription medicines only as told by [...] provider. Document Revised: 03/15/2022 Document Reviewed: 03/15/2022 [employer] Patient Education 2022 [employer]. Follow Up Care 07/26/2023 08:37:35 With:Lester DOTSON MD, CORY Address: [facility] [address] [place] [address]- [phone] When: Unknown Comments:8-10 wk f/u [facility] Evaluation + Plan note Note Date & Type Note Facility Evaluation + Plan note Future Appointments Appointment Date:01/15/2024 08:45:00 AM Scheduled Provider:Lester DOTSON MD Location:[facility] Appointment Type:URO Office Visit [facility] Hospital course Narrative Note Date & Type Note Facility Hospital course Narrative No data available for this section [facility] Progress note Note Date & Type Note Facility Progress note No data available for this section [facility] Summary Purpose Family History No Family History Records FoundNo Family History Records Found No data available for this section No Family History Records FoundNo Family History Records Found Advance Directives No Advanced Directives Records FoundDocuments on File Type Date Recorded Patient [employer] Expl anation ACP-Advance Directive ACP-Power of Manager People Additional Source Comments (unrecognized sect ion and content) No Status Records FoundNo Status Records FoundNo Status Records FoundNo Status Records Found INFORMATION SOURCE (unrecogn ized section and content) DATE CREATED AUTHOR 09/01/2020 [facility] DATE CREATED AUTHOR AUTHOR'S ORGANIZ ATION 10/01/2021 [facility] [place] [facility] DATE CREATED AUTHOR AUTHOR'S ORGANIZ ATION 12/20/2023 [facility] EPIC DATE CREATED AUTHOR AUTHOR'S ORGANIZ ATION 12/22/2023 [facility] Patient Care team informatio n (unrecognized section and content) Personnel Name: John Rouse III, DO Address: Address: [address] [place] [address] [place], [place] [address] FOR RECORDS PERTAINING TO PATIENTS WHO ARE [...] BE BASED ON THE PRIMARY CLINICAL RECORDS. [facility] [email or web address] [facility]. provides no warranty or guarantee of the accuracy or completeness of information in this document.
== END 2024-01-05 15:59 | disposition home or self-care (01) ==
LOC: US 15:58
PROVIDERS: Visit Provider Physician Assistant
DX: N50.811 Right testicular pain (principal); I86.1 Scrotal varices
CPT/HCPCS: 76870